=== PATIENT | female | born 1940 ===

== ENCOUNTER 2018-12-22 08:29 | Outpatient (CLI) | payer OTHER ==
[2018-12-24] MEDS ORDERED: AMILODIPINE PO (10:08)
[2018-12-24] MEDS ORDERED: METOPROLOL SUCC50 MG PO (10:09)
[2018-12-24] MEDS ORDERED: FOLIC ACID1 MG PO (10:09)
[2018-12-24] MEDS ORDERED: [UNRECOGNIZED DRUG - OTHER] PO (10:09)
[2018-12-24] MEDS ORDERED: [UNRECOGNIZED DRUG - OTHER] PO (10:10)
[2018-12-24] MEDS ORDERED: CARDURA XL4 MG PO (10:10)
[2018-12-24] MEDS ORDERED: FIORINAL 50-321 EACH PO (10:11)
[2018-12-24] MEDS ORDERED: SYNTHROID75 MCG PO (10:11)
== END 2018-12-22 08:41 | disposition home or self-care (01) ==
LOC: LAB 08:29
DX: M99.53 Intervertebral disc stenosis of neural canal of lumbar region (principal)

== ENCOUNTER 2018-12-28 08:18 | Day surgery (SDC) | payer OTHER ==
[~2018-12-28 08:18] MED LIST: AMILODIPINE PO; CARDURA XL4 MG PO; FIORINAL 50-321 EACH PO; FOLIC ACID1 MG PO; METOPROLOL SUCC50 MG PO; SYNTHROID75 MCG PO; [UNRECOGNIZED DRUG - OTHER] PO; [UNRECOGNIZED DRUG - OTHER] PO
== END 2018-12-28 16:15 | disposition home or self-care (01) ==
LOC: CIR.AMB 08:18
DX: M99.53 Intervertebral disc stenosis of neural canal of lumbar region (principal)